=== PATIENT | female | born 1990 | race Caucasian/White ===

== ENCOUNTER 2019-03-19 03:56 | Emergency (ER) | payer SELFPAY ==
[~2019-03-19] VITALS: Ht 170.2 cm; Wt 74.8 kg
[2019-03-19 04:04] VITALS: BP 125/73
[2019-03-19] MEDS: KETOROLAC TROMETHAMINE INJ 60 MG/2 ML VIAL IM ONE (04:30)
[2019-03-19] MEDS ORDERED: HYDROCODONE/APAP 5/325MG 1 EACH TABLET ONE (04:32)
[2019-03-19] MEDS ORDERED: KETOROLAC TROMETHAMINE INJ 60 MG/2 ML VIAL IM ONE (04:32)
[2019-03-19] MEDS: HYDROCODONE/APAP 5/325MG 1 EACH TABLET PO ONE (04:38)
== END 2019-03-19 04:39 | disposition home or self-care (01) ==
LOC: ER 04:00
DX: H66.91 Otitis media, unspecified, right ear (principal); Z87.442 Personal history of urinary calculi
CPT/HCPCS: 96372; 99283; J1885